=== PATIENT | female | born 1955 | race African-American/Black ===

== ENCOUNTER → 2018-03-30 | Outpatient (CLI) | payer OTHER | LOC: BRMIMAGING 12:30 | PROVIDERS: ATTEND Internal Medicine | DX: Z12.31 Encounter for screening mammogram for malignant neoplasm of breast (principal); Z13.820 Encounter for screening for osteoporosis; M85.89 Other specified disorders of bone density and structure, multiple sites; E28.39 Other primary ovarian failure; Z78.0 Asymptomatic menopausal state ==

== ENCOUNTER → 2018-04-06 | Outpatient (CLI) | payer OTHER | LOC: BRMIMAGING 09:07 | PROVIDERS: ATTEND Internal Medicine | DX: R92.8 Other abnormal and inconclusive findings on diagnostic imaging of breast (principal) | CPT/HCPCS: 76641-PO ==

== ENCOUNTER → 2018-09-27 | Outpatient (CLI) | payer OTHER | LOC: BRMIMAGING 12:31 ==